=== PATIENT | female | born 1980 | race Caucasian/White ===

== ENCOUNTER 2020-09-04 21:43 | Emergency (ER) | payer OTHER | END 2020-09-05 02:15 | disposition home or self-care (01) | LOC: ER1 21:43 | DX: R51.9 Headache, unspecified (principal); R11.0 Nausea; F17.290 Nicotine dependence, other tobacco product, uncomplicated; Z20.822 Contact with and (suspected) exposure to COVID-19 | CPT/HCPCS: 99284; U0002 ==